=== PATIENT | male | born 1995 | race Hispanic/Latino ===

== ENCOUNTER 2021-11-10 17:37 | Emergency (ER) | payer SELFPAY ==
[~2021-11-10] VITALS: Ht 180.3 cm; Wt 110.0 kg
[2021-11-10] MEDS ORDERED: EPIPEN 2-P0.3 MG/0.3 IM (18:12)
[2021-11-10] MEDS ORDERED: PREDNISONE50 MG PO (18:12)
[2021-11-10 23:45] VITALS: BP 134/83
== END 2021-11-10 23:45 | disposition home or self-care (01) | DRG 918 ==
LOC: ED 17:37
DX: T63.441A Toxic effect of venom of bees, accidental (unintentional), initial encounter (principal); E66.9 Obesity, unspecified; Z68.33 Body mass index [BMI] 33.0-33.9, adult

== ENCOUNTER 2023-11-26 12:27 | Emergency (ER) | payer OTHER ==
[~2023-11-26] VITALS: Ht 180.3 cm; Wt 127.0 kg
[2023-11-26] VITALS (9 sets, daily range): BP systolic 129–154; BP diastolic 76–99
[~2023-11-26 12:27] MED LIST: EPIPEN 2-P0.3 MG/0.3 IM; PREDNISONE50 MG PO
[2023-11-26] MEDS ORDERED: BENADRYL25 M1 PO (14:03)
[2023-11-26] MEDS ORDERED: PREDNISONE50 MG PO (14:03)
== END 2023-11-26 14:29 | disposition home or self-care (01) | DRG 918 ==
LOC: ED 12:27
DX: T63.441A Toxic effect of venom of bees, accidental (unintentional), initial encounter (principal); R22.0 Localized swelling, mass and lump, head